=== PATIENT | male | born 1990 | race Caucasian/White ===

== ENCOUNTER 2023-12-15 06:17 | Day surgery (SDC) | payer BC, OTHER ==
[2023-12-15 06:59] LABS: HEMATOCRIT 37.5 % (38.4-49.7); HEMOGLOBIN 13.5 g/dL (12.9-16.9); RED BLOOD CELL COUNT 4.36 M/uL (4.14-5.76); WHITE BLOOD CELL COUNT,WBC 6.7 K/uL (3.2-11.0)
[2023-12-15] MEDS: Lactated Ringers 1,000 ML IV SCH (07:16)
[2023-12-15] MEDS: Albuterol/Ipratropium 3.0-0.5 MG/3 ML Neb Soln NEB ONE (07:26)
[2023-12-15 07:41] LABS: ALANINE AMINOTRANSFERASE,ALT 31 U/L (12-78); ALBUMIN 3.7 g/dL (3.4-5.0); ALKALINE PHOSPHATASE 54 U/L (46-116); ASPARTATE AMNIOTRANSFERASE,AST 23 U/L (15-37); BILIRUBIN TOTAL 0.4 mg/dL (0.2-1.0); BLOOD UREA NITROGEN,BUN 12 mg/dL (7-18); CALCIUM 8.7 mg/dL (8.5-10.1); CARBON DIOXIDE,CO2 26 mmol/L (21-32); CHLORIDE,CL 101 mmol/L (100-108); CREATININE 1.1 mg/dL (0.8-1.3); EST CRCL DRUG DOSING (CG) 100.47 mL/min; ESTIMATED GFR 92 mL/min (>60); GLUCOSE RANDOM 99 mg/dL (74-106); POTASSIUM,K 4.3 mmol/L (3.6-5.2); PROTEIN TOTAL,TP 7.6 g/dL (6.4-8.2); SODIUM,NA 137 mmol/L (140-148)
[2023-12-15 07:44] LABS: ANION GAP 14.3 mmol/L (5.0-14.0)
[2023-12-15] MEDS ORDERED: Glycopyrrolate 0.2 MG/ML 5 ML MDV ONE (07:44)
[2023-12-15] MEDS ORDERED: Rocuronium 50 MG/5 ML Vial ONE (07:44)
[2023-12-15] MEDS ORDERED: Dexamethasone 4 MG/ML SDV ONE (07:44)
[2023-12-15] MEDS ORDERED: Propofol 200 MG/20 ML SDV ONE (07:44)
[2023-12-15] MEDS ORDERED: Neostigmine Methylsulfate 10 MG/10 ML MDV ONE (07:44)
[2023-12-15] MEDS ORDERED: Ondansetron 4 MG/2 ML SDV ONE (07:44)
[2023-12-15] MEDS ORDERED: fentaNYL 250 MCG/5 ML SDV ONE ×2 (07:44→08:59)
[2023-12-15] MEDS: Clindamycin in 0.9 % Sod Chlor 600 MG in Premix Bag 1 BAG IV ONE (07:55)
[2023-12-15] MEDS: metroNIDAZOLE/Normal Saline 500 MG in Premix Bag 1 BAG IV ONE (08:05)
[2023-12-15] MEDS: Ropivacaine 38 ML, dexAMETHasone 8 MG, EPINEPHrine 0.4 MG, Sodium Chloride 0.9% 39.6 ML NERVRT SCH (08:35)
[2023-12-15] MEDS: Bupivacaine 0.5%/EPINEPHrine 1:200,000 50 ML MDV ONE (08:43)
[2023-12-15] MEDS ORDERED: Ketorolac 30 MG/ML SDV ONE (08:59)
[2023-12-15] MEDS: Acetaminophen/HYDROcodone 325-5 MG Tab PO ONE (10:57)
== END 2023-12-15 11:42 | disposition home or self-care (01) ==
LOC: JP.SDS 06:17
PROVIDERS: ATTEND Surgery
DX: K43.6 Other and unspecified ventral hernia with obstruction, without gangrene (principal)
CPT/HCPCS: 00840-QZ; 36415; 80053; 85027; 94640; A9270-GY; C1713; C1781; J0171; J1100; J1596; J1836; J1885; J2405; J2704; J2710; J2795; J3010; J3490; J7120; J7620